=== PATIENT | male | born 1970 ===

== ENCOUNTER 2018-01-27 12:36 | Inpatient (IN) | payer OTHER ==
[2018-01-27] MEDS ORDERED: Sodium Chloride 0.9% 1,000 ML IV STA ×2 (13:33→16:12)
[2018-01-27] MEDS ORDERED: Alum-Mag Hydrox-Simethicone Susp (30 mL) PO ONE (13:34)
[2018-01-27] MEDS ORDERED: Alum-Mag Hydrox-Simethicone Susp (30 mL) ONE (13:46)
--- NOTE | 2018-01-27 14:00 | ED PDOC ---
HPI: Abdomen Time Seen by Provider: 01/27/18 12:56 Chief Complaint (Nursing): Abdominal Pain History Per: Patient Additional Complaint(s): Pt. states yesterday after eating food containing hot sauce he developed non- radiating epigastric abd pain. Reports he had similar pain in the past and was found to have stones in his gallbladder. Pt. states he is uncertain if they removed his gallbladder or if he had surgery. Denies chest pain, SOB, N/V/D, hematemesis, fever. Of note, last BM was today was normal. Past Medical History Reviewed: Historical Data, Nursing Documentation, Vital Signs Vital Signs: Last Vital Signs Temp 99.2 F 01/27/18 19:48 Pulse 63 01/27/18 19:50 Resp 18 01/27/18 19:48 BP 134/81 01/27/18 19:48 Pulse Ox 99 01/27/18 19:50 - Medical History PMH: Kidney Stones - Family History Family History: States: No Known Family Hx - Immunization History Hx Tetanus Toxoid Vaccination: No Hx Influenza Vaccination: No Hx Pneumococcal Vaccination: No - Home Medications Home Medications: Ambulatory Orders Medication Instructions Recorded No Known Home Med 01/27/18 - Allergies Allergies/Adverse Reactions: Allergies Allergy/AdvReac Type Severity Reaction Status Date / Time No Known Allergies Allergy Unverified 10/27/17 19:42 Review of Systems ROS Statement: Except As Marked, All Systems Reviewed And Found Negative Gastrointestinal: Positive for: Abdominal Pain Physical Exam - Physical Exam Appears: Positive for: Well, Non-toxic, No Acute Distress Skin: Positive for: Normal Color, Warm. Negative for: Rash, Jaundice Eye Exam: Positive for: Normal appearance. Negative for: Scleral icterus Cardiovascular/Chest: Positive for: Regular Rate, Rhythm Respiratory: Positive for: Normal Breath Sounds. Negative for: Respiratory Distress Gastrointestinal/Abdominal: Positive for: Normal Exam, Soft. Negative for: Tenderness Back: Positive for: Normal Inspection. Negative for: L CVA Tenderness, R CVA Tenderness Neurologic/Psych: Positive for: Alert, Oriented (x3) - Laboratory Results Result Diagrams: 01/27/18 13:55 01/27/18 13:55 - ECG ECG: Positive for: Interpreted By Me ECG Rhythm: Positive for: Sinus Rhythm. Negative for: ST/T Changes Rate: 63 O2 Sat by Pulse Oximetry: 99 - Radiology X-Ray: Read By Radiologist (Obstructive series) X-Ray Interpretation: No Acute Disease - Progress ED Course And Treament: Labs, abd US, EKG, IV NS bolus x 1, pepcid 20mg IV, maalox 30ml PO ordered. 1609 On re-evaluation, pt. reports only "10% decrease" in pain. Abd US: Diffuse increased echogenicity in the liver may reflect hepatic steatosis however parenchymal infectious/ inflammatory etiologies cannot be entirely excluded. Clinical and laboratory correlation is advised. Focal fatty sparing adjacent to the paras hepatitis. Status post cholecystectomy, no biliary dilatation. LFT's and lipase WNL. CT abd/pelvis w/ IV and PO contrast, morphine 2mg IV, zofran 4mg IV, additional NS bolus ordered. 1939 CT abd/pelvis w/ PO and IV contrast: 1. The appendix is dilated measuring up to 10 mm diameter, mostly fluid-filled and with thick torrez and mild periappendiceal fat stranding, suspicious for acute appendicitis without signs of perforation. 2. There is mild wall thickening in the cecum, possibly contiguous inflammation , however cannot exclude mild primary colitis. Call placed to director surgical. Pt. informed of results and plan. 1948 Case d/w Dr. Sanders, director surgical, who will see patient in ED. Requests that pt. be given Zosyn IV. Case d/w Dr. Lorenzo, surgeon inclusion special education teacher, who agrees with care and requests that pt be admitted under her service. Zosyn IV ordered. Of note, pt. states last time he ate or drank was at 0700 today. Disposition - Clinical Impression Clinical Impression: Appendicitis - Patient ED Disposition Is Patient to be Admitted: Yes - Disposition Disposition Time: 19:50 Condition: GUARDED Forms: [id number] (Spanish)
[2018-01-27 14:43] LABS: BASO % 0.3 % (0.0-2.0); EOS % 0.2 % (0.0-4.0); HEMOGLOBIN 15.2 g/dL (12.0-18.0); LYMPH # 1.1 K/uL (1.0-4.3); LYMPH % 7.1 % (20.0-40.0); MEAN CELL VOLUME 90.2 fl (80.0-94.0); MEAN CORPUSCULAR HEMOGLOBIN 30.9 pg (27.0-31.0); MEAN CORPUSCULAR HGB CONC 34.2 g/dL (33.0-37.0); MEAN PLATELET VOLUME 7.7 fl (7.2-11.7); MONO # 0.8 K/uL (0.0-0.8); MONO % 5.5 % (0.0-10.0); NEUT # 13.1 K/uL (1.8-7.0); NEUT % 86.9 % (50.0-75.0); NRBC % 0.1 % (0.0-0.0); PLATELET COUNT 297 K/uL (130-400); RBC 4.93 Mil/uL (4.40-5.90); RED CELL DISTRIBUTION WIDTH 13.4 % (11.5-14.5); WHITE BLOOD COUNT 15.1 K/uL (4.8-10.8)
[2018-01-27 14:57] LABS: URINE BACTERIA RARE (<OCC); URINE BILIRUBIN NEGATIVE (NEGATIVE); URINE BLOOD NEGATIVE (NEGATIVE); URINE CLARITY SLIGHTY-CLOUDY (Clear); URINE COLOR YELLOW (YELLOW); URINE GLUCOSE (UA) NEG (Normal); URINE LEUKOCYTE ESTERASE NEG Leu/uL (Negative); URINE PROTEIN 30 mg/dL (NEGATIVE); URINE UROBILINOGEN 0.2-1.0 mg/dL (0.2-1.0)
[2018-01-27 15:00] LABS: ALB/GLOB RATIO 1.4 (1.0-2.1); ALBUMIN 4.4 g/dL (3.5-5.0); ALT/SGPT 56 U/L (21-72); AST/SGOT 42 U/L (17-59); BLOOD UREA NITROGEN 14 mg/dl (9-20); CALCIUM 9.5 mg/dL (8.4-10.2); GFR AFRICAN-AMERICAN > 60; GFR NON-AFRICAN AMERICAN > 60; LIPASE 67 U/L (23-300)
[2018-01-27 15:20] LABS: LYMPHOCYTE 5 % (20-50); MONOCYTE 4 % (0-10); NEUTROPHIL 91 % (42-75); TOTAL CELLS COUNTED 100
[2018-01-27 15:21] LABS: PLATELET ESTIMATE NORMAL (NORMAL)
--- NOTE | 2018-01-27 15:29 | RAD ---
Date of service: 01/27/2018 PROCEDURE: Radiographs of the chest and abdomen (obstructive series) HISTORY: Abdominal pain. COMPARISON: No prior. TECHNIQUE: AP radiograph of the chest, with upright and supine radiographs of the abdomen. FINDINGS: CHEST: Lungs: Clear. Cardiovascular: Normal size heart. No pulmonary vascular congestion. Pleura: No pleural fluid. No pneumothorax. Other findings: None. ABDOMEN AND PELVIS: Bowel: Unremarkable bowel gas pattern. No evidence of mechanical obstruction. Free air: None. Bones: Unremarkable. Other findings: Calcifications in the mid abdomen and to the left of the midline. The findings are nonspecific but can be seen with chronic pancreatitis. IMPRESSION: No acute findings related to/accounting for the clinical presentation.
--- NOTE | 2018-01-27 15:41 | US ---
Date of service: 01/27/2018 HISTORY: Epigastric pain COMPARISON: None. TECHNIQUE: Grayscale imaging was performed. FINDINGS: LIVER: Measures 15.8 cm in length. There is diffuse increased echogenicity of the liver parenchyma with focal fatty sparing adjacent to the paras hepatic. No mass. No intrahepatic bile duct dilatation. GALLBLADDER: Surgically absent. COMMON BILE DUCT: Measures 5.0 mm. No stones. No dilatation. PANCREAS: Unremarkable as visualized. No mass. No ductal dilatation. RIGHT KIDNEY: Measures 11.1 cm in length. Normal echogenicity. No calculus, mass, or hydronephrosis. AORTA: No aneurysmal dilatation. IVC: Unremarkable. OTHER FINDINGS: None . IMPRESSION: Diffuse increased echogenicity in the liver may reflect hepatic steatosis however parenchymal infectious/ inflammatory etiologies cannot be entirely excluded. Clinical and laboratory correlation is advised. Focal fatty sparing adjacent to the paras hepatitis. Status post cholecystectomy, no biliary dilatation.
[2018-01-27] MEDS ORDERED: Iohexol 240 (50 ml) PO ONE (16:12)
[2018-01-27] MEDS ORDERED: Iohexol 240 (50 ml) ONE (16:34)
[2018-01-27] MEDS ORDERED: Iohexol 300 100 ML IJ ONE (17:37)
[2018-01-27] MEDS ORDERED: Sodium Chloride 0.9% 50 ML IV ONE (17:38)
[2018-01-27] MEDS ORDERED: Piperacillin/Tazobact 3.375 GM in Sodium Chloride 0.9% 100 ML IVPB STA (19:45)
[2018-01-27] MEDS ORDERED: Piperacillin/Tazobact 3.375 gm Inj IVPB ONE (20:14)
--- NOTE | 2018-01-27 20:22 | CP.PCM.HP ---
History of Present Illness - History of Present Illness History of Present Illness: General Surgery - Dr. Lorenzo 47yo M w/ no significant PMH, presents with abdominal pain x1 day. Pt states the pain began in the epigastric region late last night after eating latvian food. This morning the pain became worse and migrated towards the RLQ, a burning type paink, 8/10 at worst. He tried tylenol at home with no relief of his pain. Morphine given in the ED gave him significant improvement of the pain , which he now describes as mild, 2/10. Pt denies any nausea or vomiting, but states that he has no appetite. He denies any Fevers/Chills/Diarrhea/ Constipation/Dysuria/Hematuria. His last BM was this morning and was normal. PMH: none PSH: Lap arnoldo (2016) No home medications NKDA Pt was seen in the ED. Vitals stable and WNL. Labs significant for WBC of 15.1. CT abdomen/pelvis was done which showed a 10mm dilated appendix, fluid filled and thick walled, with surrounding inflammatory stranding suggestive for acute appendicitis. Present on Admission - Present on Admission Any Indicators Present on Admission: No History of DVT/PE: No History of Uncontrolled Diabetes: No Urinary Catheter: No Decubitus Ulcer Present: No Review of Systems - Review of Systems All systems: reviewed and no additional remarkable complaints except (as per HPI ) Past Patient History - Past Social History Smoking Status: Never Smoked - PSYCHIATRIC Hx Substance Use: No - SURGICAL HISTORY Hx Cholecystectomy: Yes Other/Comment: Lap Arnoldo - ANESTHESIA Hx Anesthesia: No Meds Allergies/Adverse Reactions: Allergies Allergy/AdvReac Type Severity Reaction Status Date / Time No Known Allergies Allergy Unverified 10/27/17 19:42 Physical Exam - Constitutional Appears: No Acute Distress - Head Exam Head Exam: ATRAUMATIC, NORMAL INSPECTION, NORMOCEPHALIC - Eye Exam Eye Exam: Normal appearance - ENT Exam ENT Exam: Mucous Membranes Moist - Respiratory Exam Respiratory Exam: NORMAL BREATHING PATTERN. absent: Respiratory Distress - Cardiovascular Exam Cardiovascular Exam: REGULAR RHYTHM - GI/Abdominal Exam GI & Abdominal Exam: Guarding, Soft, Tenderness (RLQ, Mcburney's pt). absent: Distended, Firm, Rebound, Rigid - Neurological Exam Neurological exam: Alert, Oriented x3 - Psychiatric Exam Psychiatric exam: Normal Affect, Normal Mood - Skin Skin Exam: Dry, Intact Results - Vital Signs Recent Vital Signs: Last Vital Signs Temp 99.2 F 01/27/18 19:48 Pulse 63 01/27/18 20:08 Resp 18 01/27/18 19:48 BP 134/81 01/27/18 19:48 Pulse Ox 99 01/27/18 20:08 - Labs Result Diagrams: 01/27/18 13:55 01/27/18 13:55 Labs: Laboratory Results - last 24 hr 01/27/18 01/27/18 01/27/18 13:55 13:55 13:55 WBC 15.1 H RBC 4.93 Hgb 15.2 Hct 44.5 MCV 90.2 MCH 30.9 MCHC 34.2 RDW 13.4 Plt Count 297 MPV 7.7 Neut % (Auto) 86.9 H Lymph % (Auto) 7.1 L [place] % (Auto) 5.5 Eos % (Auto) 0.2 Baso % (Auto) 0.3 Neut # (Auto) 13.1 H Lymph # (Auto) 1.1 [place] # (Auto) 0.8 Eos # (Auto) 0.0 Baso # (Auto) 0.0 Neutrophils % (Manual) 91 H Lymphocytes % (Manual) 5 L Monocytes % (Manual) 4 Platelet Estimate Normal RBC Morphology Normal Sodium 138 Potassium 4.6 Chloride 101 Carbon Dioxide 27 Anion Gap 15 BUN 14 Creatinine 0.7 L Est GFR ( Amer) > 60 Est GFR (Non-Af Amer) > 60 Random Glucose 119 H Calcium 9.5 Total Bilirubin 0.6 AST 42 ALT 56 Alkaline Phosphatase 106 Total Protein 7.5 Albumin 4.4 Globulin 3.2 Albumin/Globulin Ratio 1.4 Lipase 67 Urine Color Yellow Urine Clarity Slighty-cloudy Urine pH 5.0 Ur Specific [place] 1.025 Urine Protein 30 Urine Glucose (UA) Neg Urine Ketones Negative Urine Blood Negative Urine Nitrate Negative Urine Bilirubin Negative Urine Urobilinogen 0.2-1.0 Ur Leukocyte Esterase Neg Urine RBC (Auto) 2 Urine Microscopic WBC 1 Urine Bacteria Rare - Imaging and Cardiology CT scan - abdomen Status: Image reviewed by me Assessment & Plan - Assessment and Plan (Free Text) Assessment: 47 yo M w acute appendicitis -Maintain NPO -IVF -IV Abx: Zosyn -Pain control prn -OR tonight for Appendectomy DW Dr Bj Sanders PGY4
[2018-01-27] MEDS ORDERED: Morphine 4 MG/ML VIAL IVP PRN (20:28)
[2018-01-27] MEDS ORDERED: Sodium Chloride 0.9% 1,000 ML IV SCH (20:30)
[2018-01-27 20:45] LABS: INR 1.2; PROTHROMBIN TIME 13.5 Seconds (9.8-13.1)
[2018-01-27 20:48] LABS: PARTIAL THROMBOPLASTIN TIME 30.9 Seconds (25.6-37.1)
[2018-01-27] MEDS ORDERED: Succinylcholine 200 mg/10 ml Inj IV ONE (20:48)
[2018-01-27] MEDS ORDERED: Propofol 10 mg/ml Inj (20 ML) ONE (20:48)
[2018-01-27] MEDS ORDERED: Rocuronium 10 mg/ml (5 ml) ONE (20:48)
[2018-01-27] MEDS ORDERED: Midazolam 2 MG/2 ML VIAL ONE (21:44)
[2018-01-27] MEDS ORDERED: Sodium Chloride 0.9% 1,000 ML IV ONE (22:30)
[2018-01-27] MEDS ORDERED: Lactated Ringer's 1,000 ML IV ONE ×2 (23:00)
[2018-01-27] MEDS ORDERED: Naloxone 0.4 mg/ml Inj (Adult) ONE (23:38)
--- NOTE | 2018-01-28 | PCM.SURG1 ---
Surgeon's Initial Post Op Note - Surgeon's Notes Surgeon: Dr. Lorenzo Automotive Sales Specialist: Dr. Sanders PGY4 Type of Anesthesia: General Endo Anesthesia Administered By: Marisol Pre-Operative Diagnosis: Acute Appendicitis Operative Findings: same Post-Operative Diagnosis: same Operation Performed: Laparoscopic Appendectomy Specimen/Specimens Removed: appendix Estimated Blood Loss: EBL {In ML}: 10 Blood Products Given: N/A Drains Used: No Drains Post-Op Condition: Good Date of Surgery/Procedure: 01/27/18 Time of Surgery/Procedure: 23:59
[2018-01-28] MEDS ORDERED: HYDROmorphone 0.5 mg/0.5 ml ISec IVP PRN (00:23)
[2018-01-28] MEDS ORDERED: DiphenhydrAMINE 50 mg/ml Inj IVP PRN (00:23)
[2018-01-28] MEDS ORDERED: Lactated Ringer's 1,000 ML IV ONE (01:05)
[2018-01-28] MEDS: Piperacillin/Tazobact 3.375 GM in Sodium Chloride 0.9% 100 ML IVPB SCH ×4 (01:31→23:37)
[2018-01-28] MEDS: Lactated Ringer's 1,000 ML IV SCH ×2 (01:33→12:00)
[2018-01-28 06:45] LABS: HEMOGLOBIN 14.2 g/dL (12.0-18.0); MEAN CELL VOLUME 91.3 fl (80.0-94.0); MEAN CORPUSCULAR HGB CONC 33.9 g/dL (33.0-37.0); RBC 4.58 Mil/uL (4.40-5.90); RED CELL DISTRIBUTION WIDTH 13.6 % (11.5-14.5); WHITE BLOOD COUNT 15.4 K/uL (4.8-10.8)
[2018-01-28] MEDS: Oxycodone/Acetaminophen 5/325 mg Tab PO PRN ×2 (08:03→23:33)
--- NOTE | 2018-01-28 08:32 | CARD ---
APPROVED REPORT Date of service: 01/27/2018 <Conclusion> Normal sinus rhythm Normal ECG
--- NOTE | 2018-01-28 10:55 | CP.PCM.PN ---
Subjective - Date & Time of Evaluation Date of Evaluation: 01/28/18 Time of Evaluation: 10:54 - Subjective Subjective: General surgery progress note for Dr. Mamie Lira, PGY-2 Pt S & E at bedside at 0945 Pt reports fevers overnight. Denies N & V. Tolerating diet. No other complaints at this time. Objective - Vital Signs/Intake and Output Vital Signs (last 24 hours): Temp Pulse Resp BP Pulse Ox 99.3 F 83 20 119/67 94 L 01/28/18 09:36 01/28/18 08:28 01/28/18 08:28 01/28/18 08:28 01/28/18 08:28 Intake and Output: 01/28/18 01/28/18 06:59 18:59 Intake Total 925 Balance 925 - Medications Medications: Current Medications Sodium Chloride (Sodium Chloride 0.9%) 1,000 mls @ 100 mls/hr IV .Q10H [facility] Last Admin: 01/27/18 21:01 Dose: 100 mls/hr Piperacillin Sod/Tazobactam (Sod 3.375 gm/ Sodium Chloride) 100 mls @ 100 mls/ hr IVPB Q6H [facility] PRN Reason: Protocol Last Admin: 01/28/18 01:31 Dose: 100 mls/hr Lactated Ringer's (Lactated Ringer's) 1,000 mls @ 100 mls/hr IV .Q10H [facility] Last Admin: 01/28/18 01:33 Dose: 100 mls/hr Morphine Sulfate (Morphine) 2 mg IVP Q4 PRN PRN Reason: Pain, moderate (4-7) Ondansetron HCl (Zofran Inj) 4 mg IVP Q6 PRN PRN Reason: Nausea/Vomiting Oxycodone/Acetaminophen (Percocet 5/325 Mg Tab) 1 tab PO Q4 PRN PRN Reason: Pain, moderate (4-7) Stop: 01/31/18 08:01 Last Admin: 01/28/18 08:03 Dose: 1 tab - Labs Labs: 01/28/18 06:25 01/27/18 13:55 PT 13.5 Seconds (9.8-13.1) H 01/27/18 20:25 INR 1.2 01/27/18 20:25 APTT 30.9 Seconds (25.6-37.1) 01/27/18 20:25 - Constitutional Appears: Non-toxic, No Acute Distress - Head Exam Head Exam: ATRAUMATIC, NORMAL INSPECTION, NORMOCEPHALIC - Eye Exam Eye Exam: EOMI, Normal appearance - ENT Exam ENT Exam: Mucous Membranes Moist, Normal Exam - Neck Exam Neck Exam: Full ROM, Normal Inspection - Respiratory Exam Respiratory Exam: NORMAL BREATHING PATTERN - Cardiovascular Exam Cardiovascular Exam: REGULAR RHYTHM, +S1, +S2 - GI/Abdominal Exam GI & Abdominal Exam: Soft, Tenderness (mild, over surgical sites. Site with glue in place, no erythema or drainage. ). absent: Distended (obese), Firm, Guarding, Rigid - Extremities Exam Extremities Exam: Normal Inspection - Neurological Exam Neurological Exam: Alert, Awake, CN II-XII Intact, Oriented x3 - Psychiatric Exam Psychiatric exam: Normal Affect, Normal Mood - Skin Skin Exam: Dry, Intact, Normal Color, Warm Assessment and Plan - Assessment and Plan (Free Text) Assessment: 47M POD#1 s/p lap appy with fevers and slightly increased leukocytosis this AM Plan: Cont IV Abx Ok for regular diet Ambulate OOBTC Encourage IS use Monitor for fevers Will DW attending Soraya, PGY-2
--- NOTE | 2018-01-28 11:18 | CT ---
Date of service: 01/27/2018 PROCEDURE: CT Abdomen and Pelvis with contrast HISTORY: abd pain COMPARISON: None. TECHNIQUE: Contrast dose: 95 mL Omnipaque 300 Radiation dose: Total exam DLP = 749 mGy-cm. This CT exam was performed using one or more of the following dose reduction techniques: Automated exposure control, adjustment of the mA and/or kV according to patient size, and/or use of iterative reconstruction technique. FINDINGS: LOWER THORAX: Unremarkable. LIVER: Probable mild diffuse hepatic steatosis No gross lesion or ductal dilatation. GALLBLADDER AND BILE DUCTS: Cholecystectomy status. No dilated ducts PANCREAS: Unremarkable. No gross lesion or ductal dilatation. SPLEEN: Unremarkable. ADRENALS: Unremarkable. No mass. KIDNEYS AND URETERS: Unremarkable. No hydronephrosis. No solid mass. VASCULATURE: Unremarkable. No aortic aneurysm. BOWEL: C Crohn pericecal inflammatory changes noted and contiguous inflammatory changes affecting the terminal ileum also needed be considered. Within this confluent region and there are areas of clumped contrast and/or coarse calcifications. No complete or high-grade obstruction. These findings are contiguous with the dilated and normal appearing appendix concerning for acute sinusitis. APPENDIX: Dilated appendix concerning for acute sinusitis. No obstruction seen. No gross perforation. No periappendiceal abscess. There are regional inflammatory changes in the surrounding fat here PERITONEUM: Unremarkable. No free fluid. No free air. LYMPH NODES: Unremarkable. No enlarged lymph nodes. BLADDER: Distended REPRODUCTIVE: Prostate mildly prominent BONES: No acute fracture. OTHER FINDINGS: None. IMPRESSION: In the right lower quadrant there are inflammatory changes suggested at the confluence of the cecum terminal ileum and appendix. The dilated appendix is compatible with an acute appendicitis status. No obstruction here no free air. No micro perforations appreciated. A contiguous colitis here is also compatible with this. Clinical correlation and follow-up is advised. Other findings as above. Concordant results (preliminary interpretation) provided by [employer].
--- NOTE | 2018-01-28 23:27 | OP ---
Copied To: Catie Lorenzo MD Attending MD: Catie Lorenzo MD PROCEDURE DATE: 01/27/2018 SURGEON: Catie Lorenzo MD DRIER OPERATOR HELPER: Cynthia Sanders DO ANESTHESIA: General. ANESTHESIA ADMINISTERED BY: Dr. Damon. PREOPERATIVE DIAGNOSIS: Acute appendicitis. POSTOPERATIVE DIAGNOSIS: Acute appendicitis. PROCEDURE: Laparoscopic appendectomy. DESCRIPTION OF OPERATION: With the patient in the supine position under adequate general anesthesia, the abdomen was prepped and draped in the usual sterile manner. Veress needle puncture was performed at the umbilicus with insufflation to 15 cm water pressure of CO2, and a 5 mm laparoscopic trocar was inserted via an infraumbilical incision. Under direct vision, 5 and 12 mm trocars were inserted in the left lower quadrant. The appendix was visualized. It was noted to be acutely inflamed with marked thickening of the mesoappendix as well. The mesoappendix was dissected and divided with the Endo-JENNIFER stapler. The area of the appendiceal artery was prominent close to the base of the appendix, and this area was reinforced with hemoclips. The appendix itself was then divided close to the cecum, and the appendix was placed in a specimen retrieval bag and removed via the 12 mm port site. The stump was examined for hemostasis. The right gutter and iliac fossa were gently suctioned. The pneumoperitoneum was released, and the trocars were removed. The 12 mm port site was closed with a [id number] fascial suture of 0 Vicryl. All incisions were closed with 4-0 Monocryl subcuticular sutures and Steri-Strips. Dry sterile dressings were applied. The patient tolerated the procedure well and transferred to recovery room in stable condition. Estimated blood loss for the procedure was 10 mL. Catie Lorenzo MD
[2018-01-29] MEDS: Piperacillin/Tazobact 3.375 GM in Sodium Chloride 0.9% 100 ML IVPB SCH ×2 (06:03→11:45)
[2018-01-29 06:40] LABS: MEAN CELL VOLUME 90.5 fl (80.0-94.0); MEAN CORPUSCULAR HEMOGLOBIN 31.1 pg (27.0-31.0); MEAN CORPUSCULAR HGB CONC 34.4 g/dL (33.0-37.0); RBC 4.52 Mil/uL (4.40-5.90); RED CELL DISTRIBUTION WIDTH 13.2 % (11.5-14.5); WHITE BLOOD COUNT 9.2 K/uL (4.8-10.8)
[2018-01-29] MEDS: Oxycodone/Acetaminophen 5/325 mg Tab PO PRN (07:30)
[2018-01-29 07:48] LABS: ALB/GLOB RATIO 1.3 (1.0-2.1); ALBUMIN 3.6 g/dL (3.5-5.0); ALT/SGPT 87 U/L (21-72); AST/SGOT 66 U/L (17-59); BLOOD UREA NITROGEN 10 mg/dl (9-20); CALCIUM 8.9 mg/dL (8.4-10.2); GFR AFRICAN-AMERICAN > 60; GFR NON-AFRICAN AMERICAN > 60
[2018-01-29 16:12] VITALS: BP 119/80; PULSE 71; RESP 20; TEMP 98.5; O2SAT 96
--- NOTE | 2018-01-29 16:13 | CP.PCM.DIS ---
Provider - Provider Date of Admission: 01/27/18 19:56 Attending physician: Catie Lorenzo MD Time Spent in preparation of Discharge (in minutes): 10 Hospital Course - Lab Results Lab Results: Micro Results 01/27/18 20:00 Blood Blood Culture - Preliminary NO GROWTH AFTER 24 HOURS 01/27/18 20:25 Blood Blood Culture - Preliminary NO GROWTH AFTER 24 HOURS Most Recent Lab Values WBC 9.2 K/uL (4.8-10.8) 01/29/18 06:15 RBC 4.52 Mil/uL (4.40-5.90) 01/29/18 06:15 Hgb 14.0 g/dL (12.0-18.0) 01/29/18 06:15 Hct 40.9 % (35.0-51.0) 01/29/18 06:15 MCV 90.5 fl (80.0-94.0) 01/29/18 06:15 MCH 31.1 pg (27.0-31.0) H 01/29/18 06:15 MCHC 34.4 g/dL (33.0-37.0) 01/29/18 06:15 RDW 13.2 % (11.5-14.5) 01/29/18 06:15 Plt Count 211 K/uL (130-400) 01/29/18 06:15 MPV 7.7 fl (7.2-11.7) 01/27/18 13:55 Neut % (Auto) 86.9 % (50.0-75.0) H 01/27/18 13:55 Lymph % (Auto) 7.1 % (20.0-40.0) L 01/27/18 13:55 [place] % (Auto) 5.5 % (0.0-10.0) 01/27/18 13:55 Eos % (Auto) 0.2 % (0.0-4.0) 01/27/18 13:55 Baso % (Auto) 0.3 % (0.0-2.0) 01/27/18 13:55 Neut # (Auto) 13.1 K/uL (1.8-7.0) H 01/27/18 13:55 Lymph # (Auto) 1.1 K/uL (1.0-4.3) 01/27/18 13:55 [place] # (Auto) 0.8 K/uL (0.0-0.8) 01/27/18 13:55 Eos # (Auto) 0.0 K/uL (0.0-0.7) 01/27/18 13:55 Baso # (Auto) 0.0 K/uL (0.0-0.2) 01/27/18 13:55 Neutrophils % (Manual) 91 % (42-75) H 01/27/18 13:55 Lymphocytes % (Manual) 5 % (20-50) L 01/27/18 13:55 Monocytes % (Manual) 4 % (0-10) 01/27/18 13:55 Platelet Estimate Normal (NORMAL) 01/27/18 13:55 RBC Morphology Normal (NORMAL) 01/27/18 13:55 PT 13.5 Seconds (9.8-13.1) H 01/27/18 20:25 INR 1.2 01/27/18 20:25 APTT 30.9 Seconds (25.6-37.1) 01/27/18 20:25 Sodium 139 mmol/l (132-148) 01/29/18 06:15 Potassium 3.7 MMOL/L (3.6-5.0) 01/29/18 06:15 Chloride 104 mmol/L (98-107) 01/29/18 06:15 Carbon Dioxide 26 mmol/L (22-30) 01/29/18 06:15 Anion Gap 13 (10-20) 01/29/18 06:15 BUN 10 mg/dl (9-20) 01/29/18 06:15 Creatinine 0.8 mg/dl (0.8-1.5) 01/29/18 06:15 Est GFR ( Amer) > 60 01/29/18 06:15 Est GFR (Non-Af Amer) > 60 01/29/18 06:15 Random Glucose 98 mg/dL (75-110) 01/29/18 06:15 Calcium 8.9 mg/dL (8.4-10.2) 01/29/18 06:15 Total Bilirubin 0.6 mg/dl (0.2-1.3) 01/29/18 06:15 AST 66 U/L (17-59) H D 01/29/18 06:15 ALT 87 U/L (21-72) H D 01/29/18 06:15 Alkaline Phosphatase 98 U/L (38-126) 01/29/18 06:15 Total Protein 6.4 G/DL (6.3-8.2) 01/29/18 06:15 Albumin 3.6 g/dL (3.5-5.0) 01/29/18 06:15 Globulin 2.8 gm/dL (2.2-3.9) 01/29/18 06:15 Albumin/Globulin Ratio 1.3 (1.0-2.1) 01/29/18 06:15 Lipase 67 U/L (23-300) 01/27/18 13:55 Urine Color Yellow (YELLOW) 01/27/18 13:55 Urine Clarity Slighty-cloudy (Clear) 01/27/18 13:55 Urine pH 5.0 (5.0-8.0) 01/27/18 13:55 Ur Specific [place] 1.025 (1.003-1.030) 01/27/18 13:55 Urine Protein 30 mg/dL (NEGATIVE) 01/27/18 13:55 Urine Glucose (UA) Neg mg/dL (Normal) 01/27/18 13:55 Urine Ketones Negative mg/dL (NEGATIVE) 01/27/18 13:55 Urine Blood Negative (NEGATIVE) 01/27/18 13:55 Urine Nitrate Negative (NEGATIVE) 01/27/18 13:55 Urine Bilirubin Negative (NEGATIVE) 01/27/18 13:55 Urine Urobilinogen 0.2-1.0 mg/dL (0.2-1.0) 01/27/18 13:55 Ur Leukocyte Esterase Neg [place]/uL (Negative) 01/27/18 13:55 Urine RBC (Auto) 2 /hpf (0-3) 01/27/18 13:55 Urine Microscopic WBC 1 /hpf (0-5) 01/27/18 13:55 Urine Bacteria Rare (<OCC) 01/27/18 13:55 Blood Type O POSITIVE 01/27/18 20:25 Antibody Screen Negative 01/27/18 20:25 BBK History Checked No verified bt 01/27/18 20:25 - Hospital Course Hospital Course: 47 yo M admitted to the hospital on 01/27 after being found to have acute appendicitis. he was taken to the operating room that evening for laparoscopic appendectomy. Pt tolerated the procedure well, however post-op he had fevers and therefore remained in the hospital for 1 day of further antibiotics and monitoring. On POD 2 pt was tolerating regular diet, ambulating, and pain was minimal. He was stable for discharge home with follow-up in 1 week. Discharge Exam - Head Exam Head Exam: ATRAUMATIC, NORMAL INSPECTION, NORMOCEPHALIC - Respiratory Exam Respiratory Exam: NORMAL BREATHING PATTERN. absent: Respiratory Distress - Cardiovascular Exam Cardiovascular Exam: REGULAR RHYTHM - GI/Abdominal Exam GI & Abdominal Exam: Soft. absent: Distended, Firm, Guarding, Rebound, Tenderness - Neurological Exam Neurological exam: Alert, Oriented x3 - Psychiatric Exam Psychiatric exam: Normal Affect, Normal Mood - Skin Skin Exam: Dry, Intact Discharge Plan - Follow Up Plan Condition: GUARDED Disposition: HOME/ ROUTINE Additional Instructions: No Heavy Lifting >10 lbs for 6 weeks. Make and appointment to see Dr. Lorenzo in office in 1 week. Take Motrin and Tylenol OTC as needed for pain, alternate every 6 hours. Resume regular diet and light activity Referrals: Catie Lorenzo MD [Staff Provider] -
== END 2018-01-29 17:25 | disposition home or self-care (01) | DRG 343 ==
LOC: H.ER 12:36 → H.ERHOLD 19:56 → H.MEDSURG1 01-28 01:07
PROVIDERS: ADMIT Specialist; ATTEND Specialist
PROC: 0DTJ4ZZ Resection of Appendix, Percutaneous Endoscopic Approach (ICD-10-PCS; principal; 2018-01-27 22:00)
DX: K35.80 Unspecified acute appendicitis (principal); D72.828 Other elevated white blood cell count; R50.82 Postprocedural fever; Z87.442 Personal history of urinary calculi